=== PATIENT | male | born 1970 | race Caucasian/White ===

== ENCOUNTER 2019-02-16 00:32 | Inpatient (IN) | payer OTHER ==
[~2019-02-16] VITALS: Ht 180.3 cm; Wt 68.0 kg
[2019-02-16 00:39] VITALS: BP 126/77
[2019-02-16] MEDS ORDERED: ADDERALL 20 MG20 M1 PO (00:44)
[2019-02-16 01:11] LABS: HEMOGLOBIN 14.4 gm/dL (14.0-18.0); NUCLEATED RBCS 0 /100WBC; WBC 4.6 thou/uL (4.0-11.0)
[2019-02-16 01:16] LABS: CALCIUM 8.3 mg/dL (8.5-10.1); HEMATOCRIT 41.1 % (42.0-52.0); MCH 30.7 pg (26.0-34.0); MCHC 35.1 g/dL (28.0-37.0); MCV 87.3 fL (80.0-100.0); MPV 8.4 fl. (7.2-11.1); PLATELET COUNT* 87 thou/uL (150-400); POTASSIUM 4.6 mmol/L (3.5-5.1); RBC 4.71 mil/uL (4.50-6.00); RDW-CV 13.3 % (10.5-14.5)
[2019-02-16 01:28] LABS: ABSOLUTE LYMPHOCYTES 0.3 thou/uL (0.8-5.3); ABSOLUTE MONOCYTES 0.4 thou/uL (0.0-1.2)
[2019-02-16 01:29] LABS: PLATELET ESTIMATE DECREASED; TOXIC GRANULATION Occasional
[2019-02-16 01:32] LABS: ALBUMIN 3.7 g/dL (3.4-5.0); TOTAL BILIRUBIN 0.7 mg/dL (<0.1-1.0); TOTAL PROTEIN 7.1 g/dL (6.4-8.2)
[2019-02-16 03:38] VITALS: BP 110/62
[2019-02-16 04:00] VITALS: BP 104/68
[2019-02-16 09:20] VITALS: BP 107/71
[2019-02-16 12:18] VITALS: BP 107/71
--- NOTE | 2019-02-16 12:45 | NUR ---
PATIENT DISCHARGED TO HOME.DISCHARGE PAPERS REVIEWED AND SIGNED. NO PRESCRIPTIONS. IV REMOVED. PATIENT EDUCATED ON IMPORTANCE OF FINDING PCP. PATIENT DENIES ANY FURTHER NEEDS AT THIS TIME. PATIENT TAKEN AMBULATORY TO EXIT. LEFT BY OWN VEHICLE.
== END 2019-02-16 12:45 | disposition home or self-care (01) | DRG 442 ==
LOC: M.ERS 00:32 → M.TBA-ER 02:59 → M.ORTHSURG 03:53
PROVIDERS: Emergency Medicine; ADMIT Internal Medicine
DX: B17.9 Acute viral hepatitis, unspecified (principal); E87.1 Hypo-osmolality and hyponatremia; J06.9 Acute upper respiratory infection, unspecified; F17.210 Nicotine dependence, cigarettes, uncomplicated; B34.9 Viral infection, unspecified; Z23 Encounter for immunization; B18.9 Chronic viral hepatitis, unspecified; Z90.49 Acquired absence of other specified parts of digestive tract; Z88.6 Allergy status to analgesic agent; Z79.899 Other long term (current) drug therapy